=== PATIENT | female | born 1985 | race Caucasian/White ===

== ENCOUNTER → 2024-02-01 07:22 | Outpatient (REF) | payer OTHER, SELFPAY | LOC: HWWDC 07:22 | PROVIDERS: ATTENDING PHYSICIAN Obstetrics & Gynecology; FAMILY PHYSICIAN Internal Medicine | DX: Z12.31 Encounter for screening mammogram for malignant neoplasm of breast (principal) | CPT/HCPCS: 77063; 77067 ==

== ENCOUNTER → 2024-07-13 07:05 | Outpatient (REF) | payer OTHER, SELFPAY | LOC: RCS 07:05 | PROVIDERS: ATTENDING PHYSICIAN Internal Medicine Cardiovascular Disease; FAMILY PHYSICIAN Internal Medicine | DX: I48.0 Paroxysmal atrial fibrillation (principal) | CPT/HCPCS: 93306 ==

== ENCOUNTER → 2025-05-15 07:29 | Outpatient (REF) | payer OTHER, SELFPAY | LOC: RCS 07:29 | PROVIDERS: ATTENDING PHYSICIAN Internal Medicine Cardiovascular Disease; FAMILY PHYSICIAN Internal Medicine | DX: R00.2 Palpitations (principal); I47.19 Other supraventricular tachycardia | CPT/HCPCS: 93017 ==

== ENCOUNTER → 2025-05-24 15:03 | Outpatient (REF) | payer OTHER, SELFPAY | LOC: HWRAD 15:03 | PROVIDERS: ATTENDING PHYSICIAN Internal Medicine | DX: E04.1 Nontoxic single thyroid nodule (principal) | CPT/HCPCS: 76536 ==